=== PATIENT | female | born 1960 | race Two or more races ===

== ENCOUNTER → 2020-08-29 15:00 | Outpatient (CLI) | payer OTHER | END | disposition home or self-care (01) | LOC: PPH VACUNA 15:00 | DX: Z23 Encounter for immunization (principal) ==

== ENCOUNTER → 2020-09-19 23:12 | Outpatient (CLI) | payer OTHER | END | disposition home or self-care (01) | LOC: PPH VACUNA 23:12 | DX: Z23 Encounter for immunization (principal) ==

== ENCOUNTER 2021-04-07 08:00 | Outpatient (CLI) | payer OTHER | END 2021-04-07 08:30 | disposition home or self-care (01) | LOC: PPH VACUNA 08:00 | PROVIDERS: ATTEND Emergency Medicine Pediatric Emergency Medicine | DX: Z23 Encounter for immunization (principal) ==

== ENCOUNTER 2021-10-14 08:30 | Outpatient (CLI) | payer OTHER | END 2021-10-14 08:40 | disposition home or self-care (01) | LOC: PPH VACUNA 08:30 | PROVIDERS: ATTEND Emergency Medicine Pediatric Emergency Medicine | DX: Z23 Encounter for immunization (principal) ==